=== PATIENT | male | born 1985 | race African-American/Black ===

== ENCOUNTER 2021-04-11 18:08 | Emergency (ER) | payer OTHER ==
[~2021-04-11] VITALS: Ht 182.9 cm; Wt 100.0 kg
[2021-04-11] MEDS ORDERED: NAPR220C14 PO (18:16)
[2021-04-11] MEDS ORDERED: ACETAMINOPHEN 500 MG TAB PO ONE (21:55)
[2021-04-11] MEDS ORDERED: KETOROLAC 60MG 2ML VIAL IM ONE (21:55)
[2021-04-11] MEDS ORDERED: LIDOCAINE 5% (LIDODERM) PATCH TD ONE (21:55)
[2021-04-11] MEDS ORDERED: METH-1165 PO (23:27)
[2021-04-11] MEDS ORDERED: NAPR-837 PO (23:28)
[2021-04-11] MEDS ORDERED: ASPE4PAD TOP (23:28)
[2021-04-11] MEDS ORDERED: methocarbamoL 750 MG TAB PO ONE (23:30)
[2021-04-11 23:31] VITALS: BP 115/80
[2021-04-12] MEDS ORDERED: **NOTE PATIENT COMMENT** MISC XX SCH (21:00)
== END 2021-04-11 23:36 | disposition home or self-care (01) ==
LOC: M ED 18:08
DX: M54.50 Low back pain, unspecified (principal)
CPT/HCPCS: 72131; 96372; 99283; J1885